=== PATIENT | female | born 1995 | race Caucasian/White ===

== ENCOUNTER 2018-08-11 16:21 | Emergency (ER) | payer BC ==
[~2018-08-11] VITALS: Ht 167.6 cm; Wt 89.8 kg
[2018-08-11 16:28] VITALS: Ht 167.6 cm; Wt 89.8 kg
[2018-08-11 19:15] VITALS: BP 140/82
== END 2018-08-11 19:36 | disposition home or self-care (01) ==
LOC: ED 16:21
DX: S02.401A Maxillary fracture, unspecified side, initial encounter for closed fracture (principal); W21.07XA Struck by softball, initial encounter; Y93.64 Activity, baseball; Y92.89 Other specified places as the place of occurrence of the external cause; Y99.8 Other external cause status